=== PATIENT | female | born 1980 | race Caucasian/White ===

== ENCOUNTER 2023-07-08 06:00 | Outpatient (RCR) | payer OTHER, SELFPAY | END 2023-07-20 23:59 | disposition home or self-care (01) | LOC: SPT 06:00 | PROVIDERS: Visit Provider Physician Assistant | DX: S46.012D Strain of muscle(s) and tendon(s) of the rotator cuff of left shoulder, subsequent encounter (principal); X58.XXXD Exposure to other specified factors, subsequent encounter | CPT/HCPCS: 97110; 97161 ==

== ENCOUNTER 2023-07-17 12:47 | Outpatient (CLI) | payer OTHER, SELFPAY ==
--- NOTE | 2023-07-17 12:56 | MM_ITS ---
WS: [id number] BILATERAL SCREENING DIGITAL TOMOSYNTHESIS MAMMOGRAM WITH CAD HISTORY: SCREENING COMPARISON: None available. Bilateral CC and MLO views with tomosynthesis and synthetic mammography submitted. Computer aided det ection analyzed. Breast composition: The breasts are heterogeneously dense, which may obscure small masses. No suspici ous masses, microcalcifications or architectural distortion. IMPRESSION: MM/[place] [id number] BI-RADS: 1-Negative FOLLOW UP: 1 Year Follow-up
--- NOTE | 2023-07-17 12:56 | XR_ITS ---
WS: [id number] DEXA (DUAL ENERGY X-RAY ABSORPTIOMETRY) Bone mineral density was performed using a [employer] machine. HISTORY: POSTMENOPAUSAL COMPARISON: None available. Lumbar spine BMD (L1-L4): 1.320 g/cm2 T score: 1.2 Z score: 0.7 Total hip BMD: Left: 1.131 g/cm2. T score: 1.0 Z score: 0.9 Right: 1.153 g/cm2. T score: 1.2 Z score: 1.1 10 year probability of a major osteoporotic fracture is 2.0%. IMPRESSION: NORMAL BONE MINERAL DENSITY based upon the WHO classification for females.
== END 2023-07-17 12:48 | disposition home or self-care (01) ==
LOC: RAD 12:47
PROVIDERS: Visit Provider Physician Assistant
DX: Z78.0 Asymptomatic menopausal state (principal)
CPT/HCPCS: 77063; 77067; 77080

== ENCOUNTER 2023-07-21 06:00 | Outpatient (RCR) | payer OTHER, SELFPAY | END 2023-08-12 23:59 | disposition home or self-care (01) | LOC: SPT 06:00 | PROVIDERS: Visit Provider Physician Assistant | DX: S46.012D Strain of muscle(s) and tendon(s) of the rotator cuff of left shoulder, subsequent encounter (principal); X58.XXXD Exposure to other specified factors, subsequent encounter | CPT/HCPCS: 97110 ==

== ENCOUNTER 2023-10-13 12:04 | Outpatient (CLI) | payer OTHER, SELFPAY ==
--- NOTE | 2023-10-13 12:15 | MR_ITS ---
WS: [id number] MRI LEFT SHOULDER NONCONTRAST TECHNIQUE: Sagittal T2, coronal T1, T2 and proton density imaging. Axial gradient PDE imaging. CLINICAL INFORMATION: L SHOULDER DERANGEMENT COMPARISON: None. FINDINGS: Moderate degenerative arthritis at the AC joint. Subacromial spurring. Mild downsloping acromion. Sli ght impingement on the distal supraspinatus. Tendinopathy distal supraspinatus. Tiny insertional tear distal infraspinatus. Normal teres minor. Normal subscapularis. Biceps tendon appears intact within the bicipital groove. I ntra-articular biceps tendon appears intact. Glenoid labrum appears grossly normal. Normal bone marrow signal in the humerus and glenoid. Suggestion of chronic Hill-Sachs deformity. No edema. Recommend correlation with history of dislocation. MR/MR shoulder LT wo con* [id number] IMPRESSION: 1. Moderate degenerative arthritis AC joint with slight impingement on the dis avis supraspinatus. 2. Chronic thinning of the distal supraspinatus with tendinopathy. Tiny unders urface tear distally. Small insertional tear infraspinatus. 3. Rotator cuff is otherwise intact. 4. Normal biceps tendon in the bicipital groove. Normal intra-articular biceps tendon. 5. Suggestion of equivocal chronic Hill-Sachs lesion. Recommend correlation wi history of dislocation. No edema. 6. Normal bone marrow signal in the glenoid. Glenoid labrum appears grossly no rmal.
== END 2023-10-13 12:05 | disposition home or self-care (01) ==
LOC: RAD 12:04
PROVIDERS: Visit Provider Physician Assistant
DX: M19.012 Primary osteoarthritis, left shoulder (principal); M75.92 Shoulder lesion, unspecified, left shoulder; M25.712 Osteophyte, left shoulder
CPT/HCPCS: 73221

== ENCOUNTER 2024-07-30 03:57 | Emergency (ER) | payer OTHER, SELFPAY ==
[2024-07-30 04:04] VITALS: BP 163/91; PULSE 93; RESP 16; TEMP 36.3; O2SAT 98; BMI 32.5
--- NOTE | 2024-07-30 04:13 | W.ED.HA ---
HPI - Headache General: Chief Complaint: Headache Stated Complaint: Migraine Time Seen by Provider: 07/30/24 04:09 History of Present Illness: Presents to the ER for evaluation of a migraine started about 1:00 this morning. Patient does have a history of migraines has not had one for a while. She did take 3 ibuprofen prior to arrival but those did not help. She said the pain is her typical migraine that surrounds her entire head. Patient does have a history of cervical fusion a few years ago and states that if she sleeps wrong sometimes triggers a migraine. She rates pain currently 7 out of 10. Does endorse some nausea. Related Data Allergies Allergy/AdvReac Type Severity Reaction Status Date / Time No Known Allergies Allergy Verified 07/30/24 04:08 Review of Systems General: Reports: 10 or more systems reviewed and unremarkable except in HPI and below PFSH ED PFSH: Social History Smoking and tobacco/nicotine status: never used tobacco/nicotine Physical Exam Const: COMMON NORMALS: no acute distress, average body habitus, patient oriented x3, no limitations, healthy appearing, alert and well nourished HENMT: COMMON NORMALS: normocephalic, atraumatic, hearing grossly normal bilaterally, external ears normal, Normal external nose present, moist oral mucous membranes and oropharynx normal HEAD & SCALP: normocephalic and atraumatic NOSE: Normal external nose present EXTERNAL EAR: Yes external ears normal Neck/C-Spine: COMMON NORMALS: full ROM, no lymphadenopathy, supple, no meningeal signs and no JVD Chest: COMMONS NORMALS: normal inspection of the chest and normal palpation of entire chest wall Resp: COMMON NORMALS: normal respiratory effort, No retractions, No use of accessory muscles and clear to auscultation bilaterally AUSCULTATION: clear to auscultation bilaterally Cardio: COMMON NORMALS: no JVD, regular rate, regular rhythm, S1 normal heart sound present, S2 normal heart sound present, No gallops present (Cardio), No clicks present (Cardio), No murmurs present (Cardio) and No rub (Cardio) RATE: regular rate RHYTHM: regular rhythm HEART SOUNDS: S1 normal heart sound present and S2 normal heart sound present GI: COMMON NORMALS: Normal to inspection, nondistended, normoactive bowel sounds present, Soft to palpation, non-tender, No hepatosplenomegaly present and no masses PALPATION: Yes Soft to palpation and Yes No hepatosplenomegaly present Neuro: COMMON NORMALS: patient oriented x3 SENSORIUM/ORIENTATION: Yes alert MENINGEAL SIGNS: Yes no meningeal signs Course Vital Signs: Vital signs: Vital Signs Temperature 97.4 F L 07/30/24 04:04 Pulse Rate 84 07/30/24 05:10 Respiratory Rate 16 07/30/24 04:04 Blood Pressure 132/91 07/30/24 05:10 Pulse Oximetry 94 07/30/24 05:10 Oxygen Delivery Me thod Room Air 07/30/24 04:04 MDM - Headache Medical Decision Making Patient was given Zofran, liter bolus normal saline, Reglan, Toradol, Benadryl this relieved her headache and her nausea. Patient be discharged home. Medical Records I reviewed the patient's medical records. Lab Data I reviewed the patient's lab results. No radiology studies performed this visit Discharge Plan Discharge Patient Disposition: Home Clinical Impression: Migraine Qualifiers: Migraine type: unspecified Status migrainosus presence: without status migrainosus Intractability: not intractable Qualified Code(s): G43.909 - Migraine, unspecified, not intractable, without status migrainosus Condition: Stable Discharge Orders: Discharge ED (Routine); Ordered 07/30/24 Ordered By: Marco Duque Patient Instructions: Migraine Headache (ED) Activity Restrictions/Additional Instructions: Thank you for choosing [facility] [place] for your healthcare needs today. Please realize that you were seen in the emergency department and that we are providing you with an emergency medical screening exam and this may not be a complete and all exclusive of all testing and/or medical workup we may need to determine your element or severity of your illness. It is very important that you follow-up as instructed with your primary care provider or specialist for the additional evaluation and to discuss your medical treatment plan. You may return to the emergency department should you have concerns or if your condition changes or worsens in any way. Print Language: Slovenian Coding Level of Care Code ED [employer] Designer for Pardeep Bartlett
[2024-07-30] MEDS: diphenhydrAMINE 50 mg/mL SDV 1mL 25 MG IVP (04:35)
[2024-07-30] MEDS: ketorolac 30 mg/mL INJ IVP (04:35)
[2024-07-30] MEDS: metoclopramide 5 mg/mL SDV 2 mL 10 MG IVP (04:35)
[2024-07-30] MEDS: sodium chloride 0.9% 1,000 ML 999 ML IV (04:35)
[2024-07-30] MEDS: ondansetron 2 mg/ML SDV 2 mL 4 MG IVP (05:07)
[2024-07-30 05:10] VITALS: BP 132/91; PULSE 84; O2SAT 94
[2024-07-30 05:28] VITALS: BP 132/91; PULSE 79; O2SAT 96
== END 2024-07-30 05:23 | disposition home or self-care (01) ==
PROVIDERS: Emergency Provider Emergency Medicine
DX: G43.909 Migraine, unspecified, not intractable, without status migrainosus (principal)
CPT/HCPCS: 96374; 96375; 99284; J1200; J1885; J2405; J2765; J7030

== ENCOUNTER 2024-09-27 11:36 | Outpatient (CLI) | payer OTHER, SELFPAY ==
--- NOTE | 2024-09-27 11:42 | MM_ITS ---
WS: [id number] BILATERAL 3D TOMOSYNTHESIS DIGITAL SCREENING MAMMOGRAPHY WITH CAD CLINICAL INFORMATION: SCREENING HISTORY: Screening mammogram. No current complaints. COMPARISON: 2023 TECHNIQUE: Bilateral CC and MLO views. FINDINGS: The breasts are composed of heterogeneous fibroglandular density tissue, which can limit the detection of small underlying mass lesions. No suspicious mass, asymmetry, calcifications, or architectural distortion. No evidence of malignancy. Incidental lucent centered calcification LEFT breast MM/MM scr tomosynthesis [id number] IMPRESSION: DENSITY: The breasts are heterogeneously dense, which may obscure small masses. BI-RADS: 2 - Benign FOLLOW UP: 1 Year Follow-up Recommend return to annual screening mammography.
== END 2024-09-27 11:37 | disposition home or self-care (01) ==
PROVIDERS: PCP Physician Assistant; Visit Provider Electrodiagnostic Medicine
DX: Z12.31 Encounter for screening mammogram for malignant neoplasm of breast (principal); R92.333 Mammographic heterogeneous density, bilateral breasts; R92.1 Mammographic calcification found on diagnostic imaging of breast
CPT/HCPCS: 77063; 77067